=== PATIENT | female | born 1955 | race Caucasian/White ===

== ENCOUNTER → 2017-08-06 | Outpatient (CLI) | payer BC ==
[~2017-08-06] MED LIST: CYMBALTA30 MG PO; CYMBALTA60 MG PO; FLEXERIL10 MG PO; HYDROCODON-ACE1 EAC7; LOSARTAN; MELOXICAM; ZOLPIDEM TARTRA10 MG PO
--- NOTE | 2017-08-06 16:06 | Diagnostic Imaging Report ---
PROCEDURE:DIAPHRAGMATIC FLUOROSCOPY (SNIFF TEST) TECHNIQUE:Dynamic imaging of the diaphragm under fluoroscopy was performed while the patient performed shallow respiration as well as a series of successive sniffs Radiation dose: Fluoroscopy time one minute total dose 61.14 mGY INDICATION:Right-sided chest discomfort, dyspnea, diaphragm disorder COMPARISON:CT chest 02/02/17, CT lumbar spine 10/15/2011 FINDINGS: Elevation of the right diaphragm is stable without significant progression. There is no significant excursion on shallow inspiration. There is mild inferior excursion with sniff test. No paradoxical motion was identified. The left diaphragm demonstrates normal inferior excursion with shallow inspiration as well as with sniff test. No paradoxical motion. 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 No evidence of diaphragmatic paralysis. Dictated by: Lulu Heller M.D. on 08/06/2017 at 16:15 Electronically approved by: Lulu Heller M.D. on 08/06/2017 at 16:15
== END ==
LOC: DX 14:11
PROVIDERS: ATTEND Internal Medicine Pulmonary Disease
DX: J98.6 Disorders of diaphragm (principal)
CPT/HCPCS: 76000

== ENCOUNTER → 2017-11-25 | Outpatient (CLI) | payer BC ==
[~2017-11-25] MED LIST changes: +IOPAMIDOL 370 MG/ML 200 ML INFUS..BTL INJ ONE; +SODIUM CHLORIDE 0.9% 200 ML ONE; +SODIUM CHLORIDE 0.9% 50ML 50 ML ONE
[2017-11-25 16:12] LABS: BLOOD UREA NITROGEN 10 mg/dL (7-26); BUN/CREATININE RATIO 14 (6-25); CREATININE, SERUM 0.72 mg/dL (0.57-1.11); EST GLOMERULAR FILTRATION RATE > 60 ML/MIN (60-)
--- NOTE | 2017-11-25 16:49 | Diagnostic Imaging Report ---
PROCEDURE: CT scan of the chest WITH intravenous contrast, using PE protocol. TECHNIQUE: The chest was scanned utilizing a multidetector helical scanner from the lung apex through the level of the adrenal glands after the IV administration of 72 cc of Isovue 370. Coronal and sagittal multiplanar reformations were obtained. COMPARISON: [facility], CT, CT CHEST WO, 02/02/2017, 8:08. INDICATIONS: TAHCYCARDIA, SHORTNESS OF BREATH, CHEST PAIN FINDINGS: Exam limited by attenuation from patient's large body habitus. Lines/tubes: None. Lungs and Airways: No filling defects in the main, right or left pulmonary arteries to the segmental level to suggest pulmonary embolism. Stable chronic atelectatic changes/scarring in the posteromedial right lower lobe and to a lesser degree, medial right middle lobe, secondary to eventration of the right hemidiaphragm. Lungs are otherwise clear, without nodules, masses, or consolidation. Airways are clear, without endobronchial lesions. Pleura: No effusion, or pneumothorax. Heart and mediastinum: Thyroid is unremarkable. Heart size is normal. No pericardial effusion. Aorta is non-aneurysmal. Main pulmonary artery is enlarged, measuring 3.9 cm. Lymph nodes: No mediastinal, hilar, or axillary adenopathy. Abdomen: Limited nonenhanced views of the upper abdomen show no abnormality in the visualized liver, kidneys, and adrenal glands. Mild splenomegaly, measuring 13.5 cm in AP diameter. Marked fatty replacement of the pancreas, without focal lesions or ductal dilation. Bones: No aggressive bony lytic lesion. Degenerative disc changes in the thoracic spine. Soft tissues are unremarkable. IMPRESSION: 1. no CT evidence of pulmonary embolism. 2. Stable chronic atelectatic changes/scarring in the posteromedial right lower lobe and to a lesser degree, medial right middle lobe, secondary to eventration of the right hemidiaphragm. The lungs are otherwise clear. 3. Enlargement pulmonary artery, likely reflecting pulmonary hypertension. 4. Mild splenomegaly. Terrell Hanson M.D. Dictated by: Terrell Hanson M.D. on 11/25/2017 at 16:49 Electronically approved by: Terrell Hanson M.D. on 11/25/2017 at 16:49
== END ==
LOC: CT 15:23
PROVIDERS: ATTEND Family Medicine
DX: R13.10 Dysphagia, unspecified (principal); R06.02 Shortness of breath; J98.6 Disorders of diaphragm
CPT/HCPCS: 36415; 71260; 82565; 84520; J7050; Q9967

== ENCOUNTER → 2020-05-08 | Outpatient (CLI) | payer MEDICARE, OTHER ==
[~2020-05-08] MED LIST changes: +FENTANYL CITRATE/PF 100MCG/2 ML INJ ONE; -IOPAMIDOL 370 MG/ML 200 ML INFUS..BTL INJ ONE; +LACTATED RINGER'S 1,000 ML ONE; +LIDOCAINE HCL 2% LOCAL INJ 5 ML SDV VIAL INJ ONE; +MIDAZOLAM HCL 2 MG/2 ML VIAL ONE; +PROPOFOL IV EMULSION 10 MG/ML 20 ML VIAL ONE; -SODIUM CHLORIDE 0.9% 200 ML ONE; -SODIUM CHLORIDE 0.9% 50ML 50 ML ONE
[2020-05-08 13:06] LABS: BASOPHILS % 0.4 % (0.0-1.0); EOSINOPHILS # (AUTO) 0.2 (0.0-0.4); EOSINOPHILS % 2.6 % (0.0-6.0); HEMATOCRIT 42.6 % (34.2-44.1); HEMOGLOBIN 13.8 g/dL (12.0-16.0); LYMPHOCYTES # (AUTO) 1.5 (1.0-3.2); LYMPHOCYTES % 19.4 % (18.0-39.1); MEAN CORPUSCULAR HEMOGLOBIN 27.4 pg (28-32); MEAN CORPUSCULAR HGB CONC 32.4 g/dL (31-35); MEAN CORPUSCULAR VOLUME 84.7 fL (81-99); MONOCYTES # (AUTO) 0.6 (0.2-0.8); MONOCYTES % 7.4 % (4.4-11.3); NEUTROPHILS # (AUTO) 5.3 (2.1-6.9); NEUTROPHILS % 69.9 % (38.7-80.0); PLATELET COUNT 231 x10e3/uL (140-360); RED BLOOD COUNT 5.03 x10e6/uL (3.6-5.1)
[2020-05-08 13:25] LABS: ANION GAP 19.2 mmol/L (8-16); BLOOD UREA NITROGEN 15 mg/dL (7-26); BUN/CREATININE RATIO 18 (6-25); CALCIUM 9.6 mg/dL (8.4-10.2); CARBON DIOXIDE 22 mmol/L (22-29); CHLORIDE 104 mmol/L (98-107); CREATININE, SERUM 0.83 mg/dL (0.57-1.11); EST GLOMERULAR FILTRATION RATE > 60 ML/MIN (60-); GLUCOSE 69 mg/dL (74-118); POTASSIUM 4.2 mmol/L (3.5-5.1); SODIUM 141 mmol/L (136-145)
== END ==
LOC: MRI 12:33
PROVIDERS: ATTEND Emergency Medicine
DX: M54.2 Cervicalgia (principal); R20.0 Anesthesia of skin; G89.29 Other chronic pain
CPT/HCPCS: 36415; 71046; 72141; 80048; 85025; 93005; J7121; U0002; J2001; J2250; J3010

== ENCOUNTER → 2022-09-04 | Outpatient (CLI) | payer MEDICARE ==
[~2022-09-04] MED LIST changes: -FENTANYL CITRATE/PF 100MCG/2 ML INJ ONE; -LACTATED RINGER'S 1,000 ML ONE; -LIDOCAINE HCL 2% LOCAL INJ 5 ML SDV VIAL INJ ONE; -MIDAZOLAM HCL 2 MG/2 ML VIAL ONE; -PROPOFOL IV EMULSION 10 MG/ML 20 ML VIAL ONE
== END ==
LOC: CT 13:27
PROVIDERS: ATTEND Emergency Medicine
DX: R55 Syncope and collapse (principal); M54.2 Cervicalgia; M54.50 Low back pain, unspecified; M54.6 Pain in thoracic spine; M18.9 Osteoarthritis of first carpometacarpal joint, unspecified
CPT/HCPCS: 70450; 72125; 72128; 72131

== ENCOUNTER → 2023-01-07 | Outpatient (CLI) | payer MEDICARE | LOC: MAMMO 13:52 | PROVIDERS: ATTEND Emergency Medicine | DX: N64.4 Mastodynia (principal) | CPT/HCPCS: 77066 ==